=== PATIENT | female | born 1955 | race Caucasian/White ===

== ENCOUNTER 2021-10-03 10:52 | Emergency (ER) | payer MEDICARE, SELFPAY ==
[2021-10-03 10:54] VITALS: BP 102/65; PULSE 123; RESP 20; TEMP 36.9; O2SAT 94; BMI 19.4
--- NOTE | 2021-10-03 10:54 | EKG12_ITS ---
Test Reason : WEAKNESS Blood Pressure : / mmHG Vent. Rate : 108 BPM Atrial Rate : 108 BPM P-R Int : 124 ms QRS Dur : 070 ms QT Int : 320 ms P-R-T Axes : 067 071 037 degrees QTc Int : 428 ms Sinus tachycardia Low voltage QRS (Limb Leads) Biatrial enlargement Abnormal ECG Confirmed by BERNARDO TAYLOR, YI ([id number]), industrial editor ADELE BELTRAN ([id number]) on 10/08/2021 10:13:02 AM Referred By: AMAYA Confirmed By:YI CHANG MD
--- NOTE | 2021-10-03 10:56 | EDS_ITS ---
HPI History of Present Illness Chief Complaint: Weakness Detail of Chief Complaint: Weakness, disorientation history of stage IV lung cancer Informant: patient, EMS and other Onset/Context/Timing Onset: Yesterday Context: Sudden Onset Timing: Continuous Quality: Unable to walk to the restroom, incontinence, confusion Location: Residents Current Severity: Mild Maximum Severity: Moderate Worsened by: Activity Relieved by: Nothing Associated Symptoms Associated Symptoms: Limited because of disorientation Narrative Narrative: Patient is a 65-year-old woman with history of ductal carcinoma in situ of the left breast and 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 She had surgery of her brain. She was on Decadron prior to starting immunotherapy. Her first dose was September 25. has had to assist her to the restroom since yesterday. This is a new finding. She urinates prior to getting to the restroom. She denied fever or chills. She does report shortness of breath with activity. She does report cough. She does endorse loss of weight and lack of appetite. Prior similar symptoms: No Recent Illness/Hospitalization: Yes [facility], [facility] Medical History (Updated 10/03/21 @ 14:[address] Pastor Contreras MD) BILATERAL FOOT FRACTURES Diabetes Pancreatitis, acute Home Medications lisinopril [Zestril] 2.5 mg PO QHS 03/27/17 [History Last Taken 10/02/21] metformin 500 mg PO BIDCM 03/27/17 [History Last Taken 10/03/21] dexamethasone 4 mg PO DAILY 10/03/21 [History Last Taken 10/03/21] levetiracetam 500 mg PO BID 10/03/21 [History Last Taken 10/03/21] pravastatin 20 mg PO QHS 10/03/21 [History Last Taken 10/02/21] Allergy/AdvReac Type Severity Reaction Status Date / Time hydrocodone [From Vicodin] AdvReac Unknown Verified 10/03/21 10:53 Family History Father Diabetes Surgical History (Updated 10/03/21 @ 10:[address] Pastor Contreras MD) H/O craniotomy History of carpal tunnel release History of lumpectomy of left breast Hx of cholecystectomy Social History (Updated 12/22/21 @ 10:[address] Pastor Contreras MD) household members: spouse Smoking Status: Current every day smoker tobacco type: cigarettes substance use type: does not use ROS ROS ED Constitutional Constitutional ED: Reports sweats and weight loss; Denies chills or fever(s) Eyes Eyes: Denies blurry vision or change in vision ENT ENT ED: Reports other Details: Thirst and dry mouth ; Denies ear pain, rhinorrhea or sore throat Cardiovascular Cardiovascular: Denies chest pain, orthopnea, palpitations, paroxysmal nocturnal dyspnea or racing heartbeat Respiratory/Chest Respiratory/Chest: Reports cough, dyspnea and dyspnea on exertion; Denies orthopnea, paroxysmal nocturnal dyspnea or sputum Gastrointestinal Gastrointestinal: Reports nausea; Denies abdominal pain, constipation, diarrhea, melena or vomiting Genitourinary Genitourinary ED: Denies dysuria, hematuria or urinary frequency Musculoskeletal Musculoskeletal: Denies arthralgias, back pain, myalgias or neck pain Integumentary Denies rash Neurologic Neurologic: Reports weakness; Denies headache(s) or paresthesias Psychiatric Psychiatric: Reports depression Endocrine Endocrinology: Denies polydipsia, polyphagia or polyuria Hematologic/Lymphatic Hematologic/Lymphatic: Denies easy bruising EXAM Physical Exam Const Vital Signs: 10/03/21 10:54 10/03/21 10:58 10/03/21 13:00 Temperature 98.4 F Temperature Source Oral Pulse Rate 123 H 101 H Respiratory Rate 20 H 21 H Respiratory Effort Normal Respiratory Pattern Normal Blood Pressure 102/65 89/65 L Blood Pressure Mean 77 73 Pulse Ox 94 92 Oxygen Delivery Method Room Air Room Air 10/03/21 13:56 Temperature Temperature Source Pulse Rate 102 H Respiratory Rate 20 H Respiratory Effort Respiratory Pattern Blood Pressure 91/42 L Blood Pressure Mean 58 Pulse Ox 92 Oxygen Delivery Method Room Air Positive well developed and cachectic Constitutional Narrative: Patient is cachectic appearing. She has skin changes due to radiation treatment to her head chest and neck. She also has alopecia. General Appearance ED: well developed and cachectic; Negative for diaphoretic, NAD or pallor Nutritional Appearance: cachectic HEENT Reports TM's clear and dry mucous membranes Negative for trauma or tenderness Tympanic Membrane ED: Yes TM's clear Mouth ED: Yes dry mucous membranes Mouth: dry mucous membranes Eyes PERRL and EOMs intact bilaterally General Eye ED: Yes pale conjunctiva; Negative for scleral icterus Neck no lymphadenopathy, supple and no JVD Chest Wall inspection of chest normal and palpation of chest normal Chest Narrative: Well-healed surgical scar noted body of the left breast. Resp No normal respiratory effort and No clear to auscultation bilaterally Effort and Inspection: Negative for pain with movement Auscultation: rales bilateral base (Left greater than right) and diminished lung sounds Cardio regular rate, regular rhythm, S1 normal heart sound, S2 normal heart sound and no murmurs GI normal to inspection, nondistended, normoactive bowel sounds, non-tender, non- distended and no masses Palpation: soft Back/Spine no CVA tenderness Thoracic Spine / Upper Back: Negative for thoracic spinal tenderness or paraspinal muscle tenderness Extremity normal to inspection General Extremety ED: Negative for tenderness Neuro No oriented x3 and CN's II-XII intact bilaterally Neuro Narrative: Patient is alert. She responds to questions slowly. She is disoriented to time. There are some question she is unable to answer. Sensorium / Orientation: Negative for alert Psych Negative for mental status grossly normal Skin No no rashes or lesions noted Skin Narrative: Patient has mottling with purplish hue to her skin. There is radiation changes noted anterior neck and upper chest. General Skin Exam: Negative for jaundice or pallor MDM MDM MDM Narrative Medical decision making narrative: Patient has altered mental status. History is limited. Will evaluate for pneumonia, urinary tract infection and since Decadron has been tapered rapidly need to evaluate for adrenal insufficiency. Her blood pressure was marginal according to the squad. Pulse ox was 9091% on room air. They placed her on oxygen by nasal cannula. Because she has had incontinence will obtain a UA. Since there is no obvious metabolic or infectious cause of her altered mental status will obtain CT of the head. Patient's CAT scan reveals a enhancing lesion consistent with metastasis and probable cause of her altered mental status. Will administer 10 mg of Decadron IV push. is not in the ER. Await for his arrival to discuss with him and his . Spoke with Dr. Lainez patient's oncologist. Realistic life expectancy 2 to 3 months. No longer than 6 months. Patient did undergo gamma knife therapy. She was informed of the CAT scan results. She agreed with the Decadron. After discussion with patient, and niece who is a nurse at [facility] she requested hospice care. The hospice nurse was paged. Will notify the oncologist that she is requesting hospice care and was made DNR comfort care only. Discussion with family, oncologist and hospice nurse for CODE STATUS took a total of 15 minutes. I spoke with Dr. Ahumada the director for hospice care. He will send a nurse over to talk with patient and family. Lab Data Attestation: I reviewed the patient's lab results. Labs: Laboratory Results - last 24 hr 10/03/21 10/03/21 10/03/21 11:10 11:10 11:10 WBC 7.9 RBC 4.70 Hgb 14.4 Hct 42.2 MCV 89.8 MCH 30.6 MCHC 34.1 RDW Std Deviation 53.0 H RDW Coeff of Elizabeth 16.5 H Plt Count 122 L MPV 9.4 Neut % (Auto) Not Reportable Absolute Neuts (auto) 7.7 Absolute Lymphs (auto) 0.15 L Total Counted 100 Neutrophils % (Manual) 88 H Band Neutrophils % 10 H Lymphocytes % (Manual) 2 L Diff Path Review May foll Platelet Estimate ADEQUATE RBC Morphology NORM C+C Sodium 132 L Potassium 4.0 Chloride 99 Carbon Dioxide 25.0 Anion Gap 8 BUN 20 H Creatinine 0.67 Estim Creat Clear Calc 65.68 Est GFR (MDRD) Af Amer 113 Est GFR (MDRD) Non-Af 93 BUN/Creatinine Ratio 29.7 H Glucose 145 H Lactic Acid Calcium 9.1 Total Bilirubin 0.70 AST 17 ALT 34 Alkaline Phosphatase 95 Total Protein 6.8 Albumin 2.6 L Globulin 4.2 Albumin/Globulin Ratio 0.6 L Cortisol 14.00 Urine Color Urine Clarity Urine pH Ur Specific [place] Urine Protein Urine Glucose (UA) Urine Ketones Urine Occult Blood Urine Nitrite Urine Bilirubin Urine Urobilinogen Ur Leukocyte Esterase Urine RBC Urine WBC Ur Squamous Epith Cells Urine Bacteria Urine Mucus 10/03/21 10/03/21 11:10 12:05 WBC RBC Hgb Hct MCV MCH MCHC RDW Std Deviation RDW Coeff of Elizabeth Plt Count MPV Neut % (Auto) Absolute Neuts (auto) Absolute Lymphs (auto) Total Counted Neutrophils % (Manual) Band Neutrophils % Lymphocytes % (Manual) Diff Path Review Platelet Estimate RBC Morphology Sodium Potassium Chloride Carbon Dioxide Anion Gap BUN Creatinine Estim Creat Clear Calc Est GFR (MDRD) Af Amer Est GFR (MDRD) Non-Af BUN/Creatinine Ratio Glucose Lactic Acid 3.2 H* Calcium Total Bilirubin AST ALT Alkaline Phosphatase Total Protein Albumin Globulin Albumin/Globulin Ratio Cortisol Urine Color Yellow Urine Clarity Sl. Cloudy Urine pH 7.0 Ur Specific [place] 1.010 Urine Protein Negative Urine Glucose (UA) Normal Urine Ketones Negative Urine Occult Blood Negative Urine Nitrite Negative Urine Bilirubin Negative Urine Urobilinogen Normal Ur Leukocyte Esterase Negative Urine RBC 0 SEEN Urine WBC 0 SEEN Ur Squamous Epith Cells 0-5 SEEN Urine Bacteria 0 SEEN Urine Mucus 0 SEEN Radiography Chest X-Ray - ED: 1 View and Read by ED Physician (Single view chest x-ray reveals chronic changes with a 81 x 79 mm right hilar mass. There is no evidence of any lytic lesions involving the ribs or vertebrae.) Diagnostic Testing: Clinical Impression(s) from Imaging Studies Chest X-Ray 10/03/21 12:02 IMPRESSION: 7.7 cm x 8.3 cm rounded mass in the right hilar region. Neoplastic process should be ruled out. Electronically Signed: Giorgi Greene MD at 12:34 EST , Service support , Brain CT 10/03/21 12:29 IMPRESSION: 3.6 x 2.7 cm ring-enhancing mass in the medial aspect of the right frontal lobe with surrounding mass effect and edema. A metastatic deposit should be ruled out. Electronically Signed: Giorgi Greene MD at 13:08 EST , Service support , Discharge Plan Triage Chief Complaint: Weakness ED Provider: Pastor Contreras Dx/Rx/DC Orders Clinical Impression: Lung cancer metastatic to brain Prescriptions: No Action metformin 500 MG tablet 500 mg PO BIDCM RF: 0 lisinopril [Zestril] 2.5 MG tablet 2.5 mg PO QHS RF: 0 dexamethasone 4 mg tablet 4 mg PO DAILY RF: 0 levetiracetam 500 mg tablet 500 mg PO BID RF: 0 pravastatin 20 mg tablet 20 mg PO QHS RF: 0 Primary Care Provider: Israel Desai Referrals: Israel Desai DO [Primary Care Provider] - Disposition Disposition: Acute Care Hospital
[2021-10-03 11:23] LABS: Hematocrit 42.2 % (37-47); Hemoglobin 14.4 g/dL (12.0-15.0); Mean Corp Hgb Conc 34.1 g/dL (32-36); Mean Corpuscular Hgb 30.6 pg (27.0-32.0); Mean Corpuscular Volume 89.8 fL (81-99); Mean Platelet Vol. 9.4 fl (6.2-12.0); POSITIVE COUNT YES; POSITIVE DIFFERENTIAL YES; POSITIVE MORPHOLOGY YES; Platelet Count 122 K/mm3 (150-450); RBC Distribution Width CV 16.5 % (11.6-14.6); White Blood Count 7.9 K/mm3 (4.4-11.0)
[2021-10-03 11:24] LABS: Differential Indicated MANUAL DIFF
[2021-10-03 11:38] LABS: ALB/GLOB Ratio 0.6 RATIO (0.9-2.4); AST(SGOT) 17 U/L (15-37); Alanine Aminotransfer ALT/SGPT 34 U/L (13-56); Albumin, Serum 2.6 g/dL (3.2-5.0); Alkaline Phosphatase 95 U/L (45-117); Anion Gap 8 (5-15); BUN 20 mg/dL (7-18); BUN/Creat Ratio 29.7 RATIO (10-20); Calcium,Total 9.1 mg/dL (8.5-10.1); Chloride 99 mmol/L (98-107); Creatinine, Serum 0.67 mg/dL (0.55-1.02); EST Glomerular Filtration Rate 93 mL/min (>60); Est Glom Filt Rate - Afr Amer 113 mL/min (>60); Estimated Creatinine Clearance 65.68 ml/min; Globulin 4.2 g/dL (2.2-4.2); Glucose 145 mg/dL (74-106); Protein, Total 6.8 g/dL (6.4-8.2); Sodium Level 132 mmol/L (136-145)
[2021-10-03 11:44] LABS: Lymphocyte 2 % (19-41); Neutrophil-Band 10 % (0-5); Neutrophil-Segmented 88 % (47-70); Total Cells Counted 100 (MANUAL DIFF)
[2021-10-03 11:45] LABS: Absolute Neutrophil Count 7.7 X10^3/uL (2.0-7.7); Neutrophil # 7.73 X10^3/uL (2.7-7.7); Platelet Estimate ADEQUATE (ADEQ); Red Cell Morphology NORM C+C NORMAL (NORM C&C)
[2021-10-03 11:46] LABS: Absolute Lymphocyte Count 0.15 X10^3/uL (0.83-4.51); Lymphocyte # 0.15 X10^3/ul (0.83-4.51)
--- NOTE | 2021-10-03 12:02 | RAD_ITS ---
STUDY: X-RAY CHEST REASON FOR EXAM: Female, 65 years old. Dyspnea and mild respiratory distress, abnormal re TECHNIQUE: Single AP portable view of the chest. COMPARISON: None. FINDINGS: EKG electrodes are seen. There is a 7.7 cm x 8.3 cm rounded mass in the right hilar region. Neoplastic process should be ruled out. There is no demonstrated pleural abnormality. Normal size heart. Normal mediastinum and mauricio. Normal visualized pulmonary arteries. There is atherosclerotic calcification of the aortic arch with tortuosity. Normal visualized thoracic spine. Normal visualized ribs, clavicles, and shoulders. There is no demonstrated abnormality of the visualized soft tissue structures of the upper abdomen. RAD/Chest 1 View (Portable) IMPRESSION: 7.7 cm x 8.3 cm rounded mass in the right hilar region. Neoplastic process should be ruled out. Electronically Signed: Giorgi Greene MD at 12:34 EST , Service support ,
[2021-10-03 12:09] LABS: Bacteria 0 SEEN /hpf (None Seen); Mucous, Urine 0 SEEN /hpf (<or=2+); Red Blood Cells-Urine 0 SEEN /hpf (0-5); White Blood Cells 0 SEEN /hpf (0-5)
[2021-10-03 12:22] LABS: Color, Urine Yellow (Yellow); Glucose, Dipstick Normal (Normal); Ketone-Dipstick Negative (Negative); Leukocyte Esterase-Dipstick Negative /ul (Negative); Nitrite-Dipstick Negative (Negative); Occult Blood-Urine Negative /ul (Negative); Protein-Dipstick Negative (Negative); Urine Bilirubin Dipstick Negative (Negative); Urine Clarity Sl. Cloudy (Clear); Urine Urobilinogen Normal (Normal)
--- NOTE | 2021-10-03 12:29 | CT_ITS ---
STUDY: CT BRAIN WITH AND WITHOUT CONTRAST REASON FOR EXAM: Female, 65 years old. Altered mental status, stage IV lung cancer RADIATION DOSAGE (If Supplied By Facility): CTDIvol = ( 44.99 ) mGy, DLP = ( 1580.97 ) mGycm TECHNIQUE: Transaxial CT imaging of the brain was performed pre and post contrast administration. The examination was performed with intravenous administration of IV 50mL Isovue-370. Individualized dose optimization techniques were used for this CT. COMPARISON: None. FINDINGS: Normal soft tissue structures. Normal calvarium. Normal size ventricles and extra-axial spaces for the patient''s age. There is a 3.6 cm x 2.7 cm rim-enhancing mass in the medial aspect of the left frontal lobe. This abuts the cerebral falx. There is evidence of surrounding edema. No significant midline shift is seen. Normal basal ganglia and thalami. Normal brainstem. Normal cerebellum. There is no intracranial hemorrhage. There are no findings of an acute ischemic infarction. Normal visualized paranasal sinuses. CT/Brain/Head W/WO Contrast IMPRESSION: 3.6 x 2.7 cm ring-enhancing mass in the medial aspect of the right frontal lobe with surrounding mass effect and edema. A metastatic deposit should be ruled out. Electronically Signed: Giorgi Greene MD at 13:08 EST , Service support ,
[2021-10-03 12:32] LABS: Squamous Epithelial Cells - UA 0-5 SEEN /hpf (5-10)
[2021-10-03 12:45] LABS: Lactic Acid 3.2 mmol/L (0.4-1.9)
[2021-10-03 13:00] VITALS: BP 89/65; PULSE 101; RESP 21; O2SAT 92
[2021-10-03 13:56] VITALS: BP 91/42; PULSE 102; RESP 20; O2SAT 92
[2021-10-03] MEDS: dexAMETHasone 10 MG/ML Vial IV (14:10)
[2021-10-03 15:19] LABS: Reflex Lactate? Y
[2021-10-03 16:00] VITALS: RESP 18
[2021-10-04 14:01] LABS: Pathologist Review Reviewed
== END 2021-10-03 17:54 | disposition short-term general hospital (02) ==
PROVIDERS: Emergency Provider Emergency Medicine; PCP Preventive Medicine Occupational Medicine
DX: C34.90 Malignant neoplasm of unspecified part of unspecified bronchus or lung (principal); C79.31 Secondary malignant neoplasm of brain; F17.210 Nicotine dependence, cigarettes, uncomplicated; E11.9 Type 2 diabetes mellitus without complications; Z79.52 Long term (current) use of systemic steroids; Z79.84 Long term (current) use of oral hypoglycemic drugs; Z79.899 Other long term (current) drug therapy
CPT/HCPCS: 36415; 70470; 71045; 80053; 81001; 82533; 83605; 85025; 87040; 87086; 87426; 93005; 96374; 99285; P9612; Q9967; A4216